=== PATIENT | female | born 1960 | race Caucasian/White ===

== ENCOUNTER 2020-01-14 11:28 | Emergency (ER) | payer OTHER ==
[2020-01-14] MEDS ORDERED: SODIUM CHLORIDE 0.9% 1,000 ML IV STA (11:44)
[2020-01-14] MEDS ORDERED: IBUPROFEN 600 MG TAB PO STA (11:44)
--- NOTE | 2020-01-14 12:18 | ED ---
Weakness HPI - General Chief complaint: Weakness Stated complaint: Weakness Time Seen by Provider: 01/14/20 11:35 Source: patient, EMS Mode of arrival: EMS Limitations: no limitations - History of Present Illness Initial comments: The patient is a 59-year-old female with past medical history of uterine cancer who presents to the emergency room with reported generalized weakness. Patient's has difficulty providing history but states over the past couple of days she has not felt well. She admits to poor fluid intake and generalized weakness. 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 She receives TPN 24 hours a day and medications were running when EMS arrived to evaluate the patient. The patient does arrive with a discharge medication list from [facility]. Patient was discharged on December 23. States that she lives alone and has a neighbor that checks on her and family that calls. She denies any nausea or vomiting. Has had poor fluid intake by mouth as she worries that increased fluid intake by mouth will cause increased fluid output from her ileostomy. She denies any abdominal pain. No increased production of stool from her ostomy at this time. Denies melenic stools or hematochezia. Her colocutanous fistula remains open and requires packing. Reports to continued yellow purulent drainage which has remained unchanged. Her home care nurse performs the packing exchanges. The remainder of the HPI is limited because the patient's current condition Records are requested from [facility] where the patient has received her previous care. She was hospitalized from November 19- December 23 for renal failure, hyperkalemia, enterocutaneous and colovaginal fistula. Patient had a vancomycin-resistant enterococcus intra-abdominal abscess for which she menjivar s IR drainage, completed 4 weeks of antibiotics was discharged home on Flagyl which she is currently still taking. Patients surgeon is Dr. Silva at [facility] and PCP is Dr. Melo. Patient originally diagnosed with uterine cancer in June of 2019 and had hysterectomy. Never received chemo/radiation. - Related Data Home Medications Medication Instructions Recorded Confirmed DULoxetine HCL [Cymbalta] 30 mg PO DAILY 01/14/20 01/14/20 Diphenox-Atrop 2.5-0.025 mg 1 tab PO QID 01/14/20 01/14/20 [Lomotil] Letrozole 2.5 mg PO DAILY 01/14/20 01/14/20 Levothyroxine Sodium 25 mcg PO DAILY 01/14/20 01/14/20 Loperamide [Imodium] 2 mg PO Q3H 01/14/20 01/14/20 Ondansetron HCl [Zofran] 8 mg PO TID 01/14/20 01/14/20 Allergies Allergy/AdvReac Type Severity Reaction Status Date / Time hydrocodone [From [place]] AdvReac Nausea & Verified 01/14/20 13:48 Vomiting Review of Systems ROS Statement: Those systems with pertinent positive or pertinent negative responses have been documented in the HPI. ROS Other: All systems not noted in ROS Statement are negative. Past Medical History Past Medical History: Cancer Additional Past Medical History / Comment(s): uterine History of Any Multi-Drug Resistant Organisms: None Reported Past Surgical History: Cholecystectomy Past Psychological History: No Psychological Hx Reported Smoking Status: Former smoker Past Alcohol Use History: None Reported Past Drug Use History: None Reported, Marijuana General Exam Limitations: altered mental status General appearance: lethargic, other (ashen mancera, diaphoretic) Eye exam: Present: normal appearance, PERRL, EOMI. Absent: scleral icterus, con junctival injection, periorbital swelling ENT exam: Present: mucous membranes dry Neck exam: Present: normal inspection. Absent: tenderness, meningismus, lymphadenopathy Respiratory exam: Present: normal lung sounds bilaterally, other (tachypnea, conversational dyspnea). Absent: wheezes, rales, rhonchi, stridor Cardiovascular Exam: Present: normal rhythm, tachycardia GI/Abdominal exam: Present: other (ileostomy left abdomen. enterocutanous fistula opening to right side of abdomen. Packing removed reveal purulent wade drainage. Adjacent skin is red, erythematous. Remainder of abdomen is non peritoneal. ) Extremities exam: Present: normal inspection, full ROM, normal capillary refill. Absent: tenderness, pedal edema, joint swelling, calf tenderness Neurological exam: Present: other (weak, opens eyes to verbal stimuli, follow commands.) Skin exam: Present: diaphoretic, pallor Course Vital Signs 01/14/20 01/14/20 01/14/20 11:34 12:03 12:13 Temperature 100.0 F H Pulse Rate 125 H 122 H 121 H Respiratory 18 18 16 Rate Blood Pressure 96/42 89/55 86/49 O2 Sat by Pulse 100 100 100 Oximetry 01/14/20 01/14/20 01/14/20 13:21 14:17 14:42 Temperature 101 F H Pulse Rate 112 H Respiratory 18 Rate Blood Pressure 121/90 81/37 99/50 O2 Sat by Pulse 97 Oximetry 01/14/20 01/14/20 01/14/20 14:46 15:10 15:30 Temperature Pulse Rate 103 H 91 Respiratory 18 18 Rate Blood Pressure 100/47 65/42 73/37 O2 Sat by Pulse 97 100 Oximetry 01/14/20 01/14/20 01/14/20 15:34 15:40 16:21 Temperature 98.2 F Pulse Rate 100 90 Respiratory 18 18 Rate Blood Pressure 68/27 81/38 92/55 O2 Sat by Pulse 98 95 Oximetry 01/14/20 01/14/20 01/14/20 16:22 16:34 16:57 Temperature Pulse Rate Respiratory Rate Blood Pressure 91/54 89/45 88/44 O2 Sat by Pulse 100 Oximetry 01/14/20 17:09 Temperature Pulse Rate 87 Respiratory 18 Rate Blood Pressure 93/50 O2 Sat by Pulse 100 Oximetry EKG Findings - EKG Comments: EKG Findings:: EKG demonstrates sinus tachycardia with a ventricular rate of 135. AZ interval 160. QRS 92. QTC of 548. No acute ST segment elevations or depressions. No signs of Gijba-[id number]-Zuxpx or Brugada Medical Decision Making - Medical Decision Making Upon arrival the patient is placed in trauma bay 2. A thorough history and physical exam is performed. I did speak to the patient's sister in regard to her care. Records were requested from [facility]. Laboratory studies were performed. White blood cell count is 14.9. Sodium 125. Potassium 2.7. Chloride 84. Lactic acid 5.4. AST 108, ALT 50. Troponin is 0.094. Lipase 648. Urinalysis shows trace leukocyte esterase, rare bacteria. Chest x-ray demonstrates no acute cardiopulmonary process. Abdomen and pelvis CT demonstrates suspected abscess or phlegmon along the mid line incision site in the subcutaneous tissues which may extend toward the ileostomy or diverting colostomy site in the left lower quadrant. Some inflammatory changes adjacent to the ascending colon or small bowel loops within the right lower quadrant. The patient was originally given a liter bolus of normal saline. I did replace the patient's potassium with 20 mEq through the IV as well as 40 meq by mouth prior to additional fluid resuscitation. She did receive a second liter of fluid followed by 100 cc/hr. Blood cultures were obtained the patient was given a dose of Zosyn. I discussed results with the patient. I did recommend transfer back to [facility] where her surgeon is available as well as the remainder of her specialists. The patient did agree with this plan and daughter Lina was in favor of this treatment plan. The patient is re-vitaled and continues to have a fever. Patient originally given Motrin for fever control. She was additionally provided with Tylenol. She remained in stable, yet critical condition and was transferred to [facility]. Accepting doctor was Dr. Hill. The patient was loaded into the ambulance and her blood pressure which was 90/50's dropped to 50/30s. The patient was deemed not stable for transport. I requested the patient be brought back to the trauma bay. She was started on peripheral levophed through her picc line. Patient does have improvement in her BP back to 90s systolic. I discussed the patients care with her daughter Lina after receiving permission from the patient. Patient then transferred in stable condition. - Lab Data Result diagrams: 01/14/20 11:58 01/14/20 11:58 Lab Results 01/14/20 01/14/20 01/14/20 Range/Units 11:58 11:58 11:58 WBC 14.9 H (3.8-10.6) k/uL RBC 4.30 (3.80-5.40) m/uL Hgb 13.2 (11.4-16.0) gm/dL Hct 38.6 (34.0-46.0) % MCV 89.7 (80.0-100.0) fL MCH 30.7 (25.0-35.0) pg MCHC 34.2 (31.0-37.0) g/dL RDW 14.6 (11.5-15.5) % Plt Count 247 (150-450) k/uL Neutrophils % (Manual) 74 % Band Neutrophils % 20 % Monocytes % (Manual) 1 % Eosinophils % (Manual) 1 % Metamyelocytes % 4 % Myelocytes % 2 % Neutrophils # (Manual) 14.00 H (1.3-7.7) k/uL Monocytes # (Manual) 0.15 (0-1.0) k/uL Eosinophils # (Manual) 0.15 (0-0.7) k/uL Metamyelocytes # (Man) 0.60 H (0) k/uL Myelocytes # (Manual) 0.30 H (0) k/uL Nucleated RBCs 0 (0-0) /100 WBC Manual Slide Review Performed Toxic Granulation Present Toxic Vacuolation Present PT 13.1 H (9.0-12.0) sec INR 1.3 H (<1.2) APTT 28.7 (22.0-30.0) sec Sodium 125 L (137-145) mmol/L Potassium 2.7 L* (3.5-5.1) mmol/L Chloride 84 L (98-107) mmol/L Carbon Dioxide 21 L (22-30) mmol/L Anion Gap 20 mmol/L BUN 32 H (7-17) mg/dL Creatinine 0.92 (0.52-1.04) mg/dL Est GFR (CKD-EPI)AfAm 78 (>60 ml/min/1.73 sqM) Est GFR (CKD-EPI)NonAf 68 (>60 ml/min/1.73 sqM) Glucose 96 (74-99) mg/dL Lactic Ac Sepsis Rflx Plasma Lactic Acid Sahil (0.7-2.0) mmol/L Calcium 9.0 (8.4-10.2) mg/dL Total Bilirubin 1.4 H (0.2-1.3) mg/dL AST 108 H (14-36) U/L ALT 50 H (4-34) U/L Alkaline Phosphatase 114 (38-126) U/L Creatine Kinase 51 (30-135) U/L Troponin I (0.000-0.034) ng/mL Total Protein 6.6 (6.3-8.2) g/dL Albumin 3.5 (3.5-5.0) g/dL Lipase 648 H (23-300) U/L Urine Color Urine Appearance (Clear) Urine pH (5.0-8.0) Ur Specific [place] (1.001-1.035) Urine Protein (Negative) Urine Glucose (UA) (Negative) Urine Ketones (Negative) Urine Blood (Negative) Urine Nitrite (Negative) Urine Bilirubin (Negative) Urine Urobilinogen (<2.0) mg/dL Ur Leukocyte Esterase (Negative) Urine RBC (0-5) /hpf Urine WBC (0-5) /hpf Ur Squamous Epith Cells (0-4) /hpf Urine Bacteria (None) /hpf Hyaline Casts (0-2) /lpf Urine Mucus (None) /hpf 01/14/20 01/14/20 01/14/20 Range/Units 11:58 11:58 12:05 WBC (3.8-10.6) k/uL RBC (3.80-5.40) m/uL Hgb (11.4-16.0) gm/dL Hct (34.0-46.0) % MCV (80.0-100.0) fL MCH (25.0-35.0) pg MCHC (31.0-37.0) g/dL RDW (11.5-15.5) % Plt Count (150-450) k/uL Neutrophils % (Manual) % Band Neutrophils % % Monocytes % (Manual) % Eosinophils % (Manual) % Metamyelocytes % % Myelocytes % % Neutrophils # (Manual) (1.3-7.7) k/uL Monocytes # (Manual) (0-1.0) k/uL Eosinophils # (Manual) (0-0.7) k/uL Metamyelocytes # (Man) (0) k/uL Myelocytes # (Manual) (0) k/uL Nucleated RBCs (0-0) /100 WBC Manual Slide Review Toxic Granulation Toxic Vacuolation PT (9.0-12.0) sec INR (<1.2) APTT (22.0-30.0) sec Sodium (137-145) mmol/L Potassium (3.5-5.1) mmol/L Chloride (98-107) mmol/L Carbon Dioxide (22-30) mmol/L Anion Gap mmol/L BUN (7-17) mg/dL Creatinine (0.52-1.04) mg/dL Est GFR (CKD-EPI)AfAm (>60 ml/min/1.73 sqM) Est GFR (CKD-EPI)NonAf (>60 ml/min/1.73 sqM) Glucose (74-99) mg/dL Lactic Ac Sepsis Rflx Plasma Lactic Acid Sahil 5.4 H* (0.7-2.0) mmol/L Calcium (8.4-10.2) mg/dL Total Bilirubin (0.2-1.3) mg/dL AST (14-36) U/L ALT (4-34) U/L Alkaline Phosphatase (38-126) U/L Creatine Kinase (30-135) U/L Troponin I 0.094 H* (0.000-0.034) ng/mL Total Protein (6.3-8.2) g/dL Albumin (3.5-5.0) g/dL Lipase (23-300) U/L Urine Color Yellow Urine Appearance Cloudy H (Clear) Urine pH 5.5 (5.0-8.0) Ur Specific [place] 1.018 (1.001-1.035) Urine Protein 1+ H (Negative) Urine Glucose (UA) Negative (Negative) Urine Ketones Negative (Negative) Urine Blood Negative (Negative) Urine Nitrite Negative (Negative) Urine Bilirubin Negative (Negative) Urine Urobilinogen <2.0 (<2.0) mg/dL Ur Leukocyte Esterase Trace H (Negative) Urine RBC 1 (0-5) /hpf Urine WBC 2 (0-5) /hpf Ur Squamous Epith Cells <1 (0-4) /hpf Urine Bacteria Rare H (None) /hpf Hyaline Casts 3 H (0-2) /lpf Urine Mucus Rare H (None) /hpf 01/14/20 Range/Units 12:48 WBC (3.8-10.6) k/uL RBC (3.80-5.40) m/uL Hgb (11.4-16.0) gm/dL Hct (34.0-46.0) % MCV (80.0-100.0) fL MCH (25.0-35.0) pg MCHC (31.0-37.0) g/dL RDW (11.5-15.5) % Plt Count (150-450) k/uL Neutrophils % (Manual) % Band Neutrophils % % Monocytes % (Manual) % Eosinophils % (Manual) % Metamyelocytes % % Myelocytes % % Neutrophils # (Manual) (1.3-7.7) k/uL Monocytes # (Manual) (0-1.0) k/uL Eosinophils # (Manual) (0-0.7) k/uL Metamyelocytes # (Man) (0) k/uL Myelocytes # (Manual) (0) k/uL Nucleated RBCs (0-0) /100 WBC Manual Slide Review Toxic Granulation Toxic Vacuolation PT (9.0-12.0) sec INR (<1.2) APTT (22.0-30.0) sec Sodium (137-145) mmol/L Potassium (3.5-5.1) mmol/L Chloride (98-107) mmol/L Carbon Dioxide (22-30) mmol/L Anion Gap mmol/L BUN (7-17) mg/dL Creatinine (0.52-1.04) mg/dL Est GFR (CKD-EPI)AfAm (>60 ml/min/1.73 sqM) Est GFR (CKD-EPI)NonAf (>60 ml/min/1.73 sqM) Glucose (74-99) mg/dL Lactic Ac Sepsis Rflx Y Plasma Lactic Acid Sahil (0.7-2.0) mmol/L Calcium (8.4-10.2) mg/dL Total Bilirubin (0.2-1.3) mg/dL AST (14-36) U/L ALT (4-34) U/L Alkaline Phosphatase (38-126) U/L Creatine Kinase (30-135) U/L Troponin I (0.000-0.034) ng/mL Total Protein (6.3-8.2) g/dL Albumin (3.5-5.0) g/dL Lipase (23-300) U/L Urine Color Urine Appearance (Clear) Urine pH (5.0-8.0) Ur Specific [place] (1.001-1.035) Urine Protein (Negative) Urine Glucose (UA) (Negative) Urine Ketones (Negative) Urine Blood (Negative) Urine Nitrite (Negative) Urine Bilirubin (Negative) Urine Urobilinogen (<2.0) mg/dL Ur Leukocyte Esterase (Negative) Urine RBC (0-5) /hpf Urine WBC (0-5) /hpf Ur Squamous Epith Cells (0-4) /hpf Urine Bacteria (None) /hpf Hyaline Casts (0-2) /lpf Urine Mucus (None) /hpf Critical Care Time Critical Care Time: Yes Critical Care Time: 40 minutes Disposition Clinical Impression: Hyponatremia, Hypokalemia, Abdominal abscess, Dehydration, Tachycardia, Severe sepsis Disposition: OTHER INSTITUTION NOT DEFINED Condition: Serious Is patient prescribed a controlled substance at d/c from ED?: No Referrals: Nonstaff,Physician [REFERRING] - 1-2 days Time of Disposition: 13:47 - Out of Hospital Transfer - Req. Specs Out of Hospital Transfer - Requested Specifics: Other Emergency Center ([facility])
[2020-01-14 12:29] LABS: HCT 38.6 % (34.0-46.0); HGB 13.2 gm/dL (11.4-16.0); MCH 30.7 pg (25.0-35.0); MCHC 34.2 g/dL (31.0-37.0); MCV 89.7 fL (80.0-100.0); Mean Platelet Volume 6.9; Platelet Count 247 k/uL (150-450); RDW 14.6 % (11.5-15.5); WBC 14.9 k/uL (3.8-10.6)
[2020-01-14 12:33] LABS: Appearance,Urine Cloudy (Clear); Bacteria,Urine Rare /hpf; Bilirubin,Urine Negative (Negative); Blood,Urine Negative (Negative); Color,Urine Yellow; Glucose,Urine (UA) Negative (Negative); Hyaline Casts,Urine 3 /lpf (0-2); Ketones,Urine Negative (Negative); Leukocyte Esterase,Urine Trace (Negative); Mucus,Urine Rare /hpf; Nitrite,Urine Negative (Negative); PH, Urine 5.5 (5.0-8.0); Protein,Urine 1+ (Negative); RBC,Urine 1 /hpf (0-5); Specific Gravity,Urine 1.018 (1.001-1.035); Squamous Epithelial Cell,Urine <1 /hpf (0-4); Urobilinogen,Urine <2.0 mg/dL (<2.0); WBC,Urine 2 /hpf (0-5)
[2020-01-14 12:39] LABS: Albumin 3.5 g/dL (3.5-5.0); INR 1.3 (<1.2); Partial Thromboplastin Time 28.7 sec (22.0-30.0); Prothrombin Time 13.1 sec (9.0-12.0); Total Bilirubin 1.4 mg/dL (0.2-1.3); Total Protein 6.6 g/dL (6.3-8.2)
[2020-01-14 12:48] LABS: Band Neutrophils % 20 %; Eosinophils # (M) 0.15 k/uL (0-0.7); Metamyelocytes % 4 %; Monocytes # (M) 0.15 k/uL (0-1.0); Myelocytes % 2 %; Neutrophils % (M) 74 %; Nucleated Red Blood Cells 0 /100 WBC (0-0); Total Cells Counted 200; Toxic Vacuolation Present
[2020-01-14] MEDS ORDERED: POTASSIUM CHLORIDE ER 20 MEQ TAB.ER PO STA (12:48)
[2020-01-14 12:49] LABS: Potassium 2.7 mmol/L (3.5-5.1); Toxic Granulation Present
[2020-01-14] MEDS ORDERED: PIPERACILLIN-TAZOBACTAM 3.375 GM in SODIUM CHLORIDE 0.9% 100 ML IVPB STA (12:53)
--- NOTE | 2020-01-14 13:01 | XR ---
EXAMINATION TYPE: XR chest 2V DATE OF EXAM: 01/14/2020 COMPARISON: None INDICATION: Weakness TECHNIQUE: Frontal and lateral views of the chest are obtained. FINDINGS: The heart size is normal. The pulmonary vasculature is normal. The lungs are clear. PICC line enters on the right and has the tip in the right atrium. IMPRESSION: 1. No acute pulmonary process.
[2020-01-14 13:22] VITALS: RESP 18
[2020-01-14] MEDS ORDERED: ACETAMINOPHEN TAB 325 MG TAB PO STA (13:22)
--- NOTE | 2020-01-14 13:37 | CT ---
EXAMINATION TYPE: CT abdomen pelvis w con DATE OF EXAM: 01/14/2020 COMPARISON: None INDICATION: weakness, fever DLP: 1312.3 mGycm, Automated exposure control for dose reduction was used. CONTRAST: 100 mL of Isovue 300. Study performed without Oral Contrast TECHNIQUE: Axial images were obtained from above the diaphragm to the pubic rami in the axial plane a t 5 mm thick sections. Reconstructed images are reviewed on the computer in the coronal plane. FINDINGS: Limited CT sections are obtained the lung bases. The lung bases are clear. CT ABDOMEN: Liver: Normal Spleen: Normal Pancreas: Normal Adrenal glands: The adrenal glands are normal. Gallbladder: Surgically absent Kidneys: No masses are evident. No hydronephrosis is present. No cysts are present. Delayed images were obtained through the kidneys, which remain unremarkable. Aorta: Normal Inferior vena cava: Normal. CT PELVIS: There is an anterior abdominal wall diastases of the surgical site. Small amount of air an d debris appears to be present. Example image series 201 image 62. The collection extends along the anterior subcutaneous region towards the ostomy site. The anterior abdominal wall musculature is slig htly thickened at the level of the suspected infection. Differentiation of the rectus abdominis muscl es from this phlegmon is difficult. This area is approximately 1.2 cm in depth and up to 7 cm in widt h. Example images Series 201 image 52 and 56. There is an ileostomy in the left lower quadrant. Postsurgical changes are evident within loops of duy wel. Tracing loops of bowel is extremely difficult with lack oral contrast. There appears to be matted loo ps of bowel containing fluid limiting bowel wall evaluation. There are loops of bowel above the urina ry bladder some of which contain air and fecal debris. Some postsurgical suture appears to be present in the rectosigmoid region. Additional bowel loop postsurgical changes in the epigastric region ante riorly. Some inflammatory change appears to be adjacent to some loops of bowel in the right paracolic gutter. Discrete intra-abdominal abscess is not clearly identified. However, the matted loops of bowel and la ck oral contrast may make differentiation difficult. Correlate with the patient's clinical symptoms. Appendix: Absent Urinary bladder: Normal. Genitourinary structures: Surgically absent Osseous structures: No suspicious lytic or sclerotic lesions. IMPRESSIONS: 1. Suspected abscess or phlegmon along a midline incision site and the subcutaneous tissues which ma y extend towards the ileostomy or diverting colostomy site in the left lower quadrant. 2. Intra-abdominal evaluation for abscess is very limited. Noncontrast bowel loops and postsurgical c hanges make differentiation from abscess very difficult. 3. There may be some inflammatory change adjacent to the ascending colon region or small bowel loops within the right lower quadrant pelvis. This is better visualized in the coronal plane.
[2020-01-14] MEDS: POTASSIUM CHLORIDE 10 MEQ in WATER FOR INJECTION 1 100ML.BAG IVPB SCH ×2 (13:52→14:47)
[2020-01-14] MEDS ORDERED: SODIUM CHLORIDE 0.9% 1,000 ML IV ONE (14:21)
[2020-01-14] MEDS ORDERED: NOREPINEPHRINE 4 MG in SODIUM CHLORIDE 0.9% 250 ML IV ONE (15:00)
[2020-01-14 15:35] VITALS: TEMP 98.2
[2020-01-14 17:10] VITALS: BP 93/50; PULSE 87
== END 2020-01-14 17:33 | disposition other institution (70) ==
LOC: EC 11:28
DX: E87.1 Hypo-osmolality and hyponatremia (principal); E87.6 Hypokalemia; L02.211 Cutaneous abscess of abdominal wall; E86.0 Dehydration; R65.20 Severe sepsis without septic shock; R00.0 Tachycardia, unspecified; Z85.42 Personal history of malignant neoplasm of other parts of uterus; Z90.710 Acquired absence of both cervix and uterus; Z87.891 Personal history of nicotine dependence; Z93.2 Ileostomy status; Z79.890 Hormone replacement therapy; Z79.899 Other long term (current) drug therapy; Z88.5 Allergy status to narcotic agent
CPT/HCPCS: 36415; 93005; 80053; 82550; 83605; 83690; 84484; 85025; 85610; 85730; 81001; 87040; 71046; 74177; 99291; 51701; 96365; 96367 ×2; 96366; 96376; 96361 ×2; J2543; J3480; Q9967

== ENCOUNTER 2020-04-03 01:50 | Emergency (ER) | payer MEDICAID, OTHER ==
[2020-04-03] MEDS ORDERED: ACETAMINOPHEN TAB 500 MG TAB PO STA (01:59)
[2020-04-03] MEDS ORDERED: IBUPROFEN 600 MG TAB PO STA (01:59)
--- NOTE | 2020-04-03 02:07 | ED ---
Recheck HPI - General Stated Complaint: Infection Time Seen by Provider: 04/03/20 01:59 Source: patient, EMS, RN notes reviewed, old records reviewed Mode of arrival: EMS Limitations: no limitations - History of Present Illness Initial Comments: This is a 59-year-old female DF for evaluation patient to the ER. Today she presents DF for evaluation regards to discharge from her vagina and rectum. Patient states she is getting brownish fluid from both areas. 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 which is currently pending persistent, patient has no pain but she may have had a fever feels feverish, no significant swelling but is very anxious, patient was scheduled for reserve reversal surgery consultation on Sunday Complaint: wound re-check -: days(s) (Symptoms on and off for the last few days) Symptoms Since Prior Visit: worsening discharge Associated Symptoms: fever - Related Data Home Medications Medication Instructions Recorded Confirmed DULoxetine HCL [Cymbalta] 30 mg PO DAILY 01/14/20 01/14/20 Diphenox-Atrop 2.5-0.025 mg 1 tab PO QID 01/14/20 01/14/20 [Lomotil] Letrozole 2.5 mg PO DAILY 01/14/20 01/14/20 Levothyroxine Sodium 25 mcg PO DAILY 01/14/20 01/14/20 Loperamide [Imodium] 2 mg PO Q3H 01/14/20 01/14/20 Ondansetron HCl [Zofran] 8 mg PO TID 01/14/20 01/14/20 Allergies Allergy/AdvReac Type Severity Reaction Status Date / Time hydrocodone [From [place]] AdvReac Nausea & Verified 01/14/20 13:48 Vomiting Review of Systems ROS Statement: Those systems with pertinent positive or pertinent negative responses have been documented in the HPI. ROS Other: All systems not noted in ROS Statement are negative. Past Medical History Past Medical History: Cancer Additional Past Medical History / Comment(s): uterine History of Any Multi-Drug Resistant Organisms: None Reported Past Surgical History: Cholecystectomy Past Psychological History: No Psychological Hx Reported Past Alcohol Use History: None Reported Past Drug Use History: None Reported, Marijuana General Exam Limitations: no limitations General appearance: alert, in no apparent distress Head exam: Present: atraumatic, normocephalic, normal inspection Eye exam: Present: normal appearance, PERRL, EOMI. Absent: scleral icterus, conjunctival injection, periorbital swelling ENT exam: Present: normal exam, mucous membranes moist Neck exam: Present: normal inspection. Absent: tenderness, meningismus, lymphadenopathy Respiratory exam: Present: normal lung sounds bilaterally. Absent: respiratory distress, wheezes, rales, rhonchi, stridor Cardiovascular Exam: Present: normal rhythm, tachycardia, normal heart sounds. Absent: systolic murmur, diastolic murmur, rubs, gallop, clicks GI/Abdominal exam: Present: soft, normal bowel sounds. Absent: distended, tenderness, guarding, rebound, rigid Extremities exam: Present: normal inspection, full ROM, normal capillary refill. Absent: tenderness, pedal edema, joint swelling, calf tenderness Back exam: Present: normal inspection Neurological exam: Present: alert, oriented X3, CN II-XII intact Psychiatric exam: Present: normal affect, normal mood Skin exam: Present: warm, dry, intact, normal color. Absent: rash Course Vital Signs 04/03/20 04/03/20 01:54 03:38 Temperature 100.0 F H 98.7 F Pulse Rate 112 H 60 Respiratory 16 17 Rate Blood Pressure 104/73 110/65 O2 Sat by Pulse 97 96 Oximetry - Reevaluation(s) Reevaluation #1: 04/03/20 02:07 Medical records reviewed Reevaluation #2: 04/03/20 03:57 spoke w patient regarding symptoms and findings, questions answered, agrees to nicho Medical Decision Making - Medical Decision Making 59 female DF for evaluation regards to what she believes maybe a new fistula patient does have current colostomy pending reversal, patient does have urinary tract infection and fever. Patient placed on IV antibiotics and transferred [facility] for evaluation by prior surgeon - Lab Data Result diagrams: 04/03/20 02:04 04/03/20 02:04 Lab Results 04/03/20 04/03/20 04/03/20 Range/Units 02:04 02:04 02:04 WBC 9.2 (3.8-10.6) k/uL RBC 3.78 L (3.80-5.40) m/uL Hgb 11.3 L (11.4-16.0) gm/dL Hct 34.7 (34.0-46.0) % MCV 91.8 (80.0-100.0) fL MCH 30.0 (25.0-35.0) pg MCHC 32.6 (31.0-37.0) g/dL RDW 15.1 (11.5-15.5) % Plt Count 230 (150-450) k/uL Neutrophils % 82 % Lymphocytes % 6 % Monocytes % 4 % Eosinophils % 5 % Basophils % 0 % Neutrophils # 7.6 (1.3-7.7) k/uL Lymphocytes # 0.6 L (1.0-4.8) k/uL Monocytes # 0.4 (0-1.0) k/uL Eosinophils # 0.5 (0-0.7) k/uL Basophils # 0.0 (0-0.2) k/uL PT 10.2 (9.0-12.0) sec INR 1.0 (<1.2) APTT 24.9 (22.0-30.0) sec Sodium (137-145) mmol/L Potassium (3.5-5.1) mmol/L Chloride (98-107) mmol/L Carbon Dioxide (22-30) mmol/L Anion Gap mmol/L BUN (7-17) mg/dL Creatinine (0.52-1.04) mg/dL Est GFR (CKD-EPI)AfAm (>60 ml/min/1.73 sqM) Est GFR (CKD-EPI)NonAf (>60 ml/min/1.73 sqM) Glucose (74-99) mg/dL Plasma Lactic Acid Sahil (0.7-2.0) mmol/L Calcium (8.4-10.2) mg/dL Magnesium (1.6-2.3) mg/dL Total Bilirubin (0.2-1.3) mg/dL AST (14-36) U/L ALT (4-34) U/L Alkaline Phosphatase (38-126) U/L Lactate Dehydrogenase (313-618) U/L C-Reactive Protein (<10.0) mg/L Total Protein (6.3-8.2) g/dL Albumin (3.5-5.0) g/dL Urine Color Yellow Urine Appearance Turbid H (Clear) Urine pH 5.5 (5.0-8.0) Ur Specific [place] 1.015 (1.001-1.035) Urine Protein 1+ H (Negative) Urine Glucose (UA) Negative (Negative) Urine Ketones Negative (Negative) Urine Blood Moderate H (Negative) Urine Nitrite Negative (Negative) Urine Bilirubin Negative (Negative) Urine Urobilinogen <2.0 (<2.0) mg/dL Ur Leukocyte Esterase Large H (Negative) Urine RBC 95 H (0-5) /hpf Urine WBC >182 H (0-5) /hpf Urine WBC Clumps Many H (None) /hpf Ur Squamous Epith Cells <1 (0-4) /hpf Urine Bacteria Moderate H (None) /hpf Hyaline Casts 4 H (0-2) /lpf Urine Mucus Rare H (None) /hpf 04/03/20 04/03/20 Range/Units 02:04 02:04 WBC (3.8-10.6) k/uL RBC (3.80-5.40) m/uL Hgb (11.4-16.0) gm/dL Hct (34.0-46.0) % MCV (80.0-100.0) fL MCH (25.0-35.0) pg MCHC (31.0-37.0) g/dL RDW (11.5-15.5) % Plt Count (150-450) k/uL Neutrophils % % Lymphocytes % % Monocytes % % Eosinophils % % Basophils % % Neutrophils # (1.3-7.7) k/uL Lymphocytes # (1.0-4.8) k/uL Monocytes # (0-1.0) k/uL Eosinophils # (0-0.7) k/uL Basophils # (0-0.2) k/uL PT (9.0-12.0) sec INR (<1.2) APTT (22.0-30.0) sec Sodium 132 L (137-145) mmol/L Potassium 5.0 (3.5-5.1) mmol/L Chloride 111 H (98-107) mmol/L Carbon Dioxide 15 L (22-30) mmol/L Anion Gap 6 mmol/L BUN 21 H (7-17) mg/dL Creatinine 0.74 (0.52-1.04) mg/dL Est GFR (CKD-EPI)AfAm >90 (>60 ml/min/1.73 sqM) Est GFR (CKD-EPI)NonAf 88 (>60 ml/min/1.73 sqM) Glucose 106 H (74-99) mg/dL Plasma Lactic Acid Sahil 1.3 (0.7-2.0) mmol/L Calcium 9.4 (8.4-10.2) mg/dL Magnesium 1.8 (1.6-2.3) mg/dL Total Bilirubin 1.0 (0.2-1.3) mg/dL AST 53 H (14-36) U/L ALT 72 H (4-34) U/L Alkaline Phosphatase 203 H (38-126) U/L Lactate Dehydrogenase 616 (313-618) U/L C-Reactive Protein 78.4 H (<10.0) mg/L Total Protein 6.0 L (6.3-8.2) g/dL Albumin 2.6 L (3.5-5.0) g/dL Urine Color Urine Appearance (Clear) Urine pH (5.0-8.0) Ur Specific [place] (1.001-1.035) Urine Protein (Negative) Urine Glucose (UA) (Negative) Urine Ketones (Negative) Urine Blood (Negative) Urine Nitrite (Negative) Urine Bilirubin (Negative) Urine Urobilinogen (<2.0) mg/dL Ur Leukocyte Esterase (Negative) Urine RBC (0-5) /hpf Urine WBC (0-5) /hpf Urine WBC Clumps (None) /hpf Ur Squamous Epith Cells (0-4) /hpf Urine Bacteria (None) /hpf Hyaline Casts (0-2) /lpf Urine Mucus (None) /hpf - EKG Data -: EKG Interpreted by Me (EKG is sinus tachycardia 1:15 IL 150 QRS 84 QTc 423) - Radiology Data Radiology results: report reviewed (CT head and pelvis does show multiple surgical anatomical changes as well as fistula between the cecum in the rectosigmoid area), image reviewed Disposition Clinical Impression: UTI (urinary tract infection), Fever, Postoperative pain Disposition: OTHER INSTITUTION NOT DEFINED Condition: Fair Is patient prescribed a controlled substance at d/c from ED?: No Referrals: None,Stated [Primary Care Provider] - 1-2 days - Out of Hospital Transfer - Req. Specs Out of Hospital Transfer - Requested Specifics: Other Emergency Center ([facility])
[2020-04-03 02:22] LABS: Partial Thromboplastin Time 24.9 sec (22.0-30.0); Prothrombin Time 10.2 sec (9.0-12.0)
[2020-04-03 02:27] LABS: ALT 72 U/L (4-34); AST 53 U/L (14-36); African American GFR (CKD) >90 (>60 ml/min/1.73 sqM); Albumin 2.6 g/dL (3.5-5.0); Alkaline Phosphatase 203 U/L (38-126); Anion Gap 6 mmol/L; Blood Urea Nitrogen 21 mg/dL (7-17); C Reactive Protein 78.4 mg/L (<10.0); Calcium 9.4 mg/dL (8.4-10.2); Carbon Dioxide 15 mmol/L (22-30); Chloride 111 mmol/L (98-107); Glucose 106 mg/dL (74-99); LDH 616 U/L (313-618); Magnesium 1.8 mg/dL (1.6-2.3); Non-African American GFR(CKD) 88 (>60 ml/min/1.73 sqM); Sodium 132 mmol/L (137-145)
[2020-04-03 02:43] LABS: Basophils % (A) 0 %; Eosinophils # (A) 0.5 k/uL (0-0.7); Eosinophils % (A) 5 %; HCT 34.7 % (34.0-46.0); HGB 11.3 gm/dL (11.4-16.0); Lymphocytes # (A) 0.6 k/uL (1.0-4.8); Lymphocytes % (A) 6 %; MCHC 32.6 g/dL (31.0-37.0); MCV 91.8 fL (80.0-100.0); Mean Platelet Volume 7.7; Monocytes # (A) 0.4 k/uL (0-1.0); Monocytes % (A) 4 %; Neutrophils # (A) 7.6 k/uL (1.3-7.7); Neutrophils % (A) 82 %; Platelet Count 230 k/uL (150-450); RBC 3.78 m/uL (3.80-5.40); RDW 15.1 % (11.5-15.5); WBC 9.2 k/uL (3.8-10.6)
[2020-04-03 02:58] LABS: Appearance,Urine Turbid (Clear); Bacteria,Urine Moderate /hpf; Bilirubin,Urine Negative (Negative); Blood,Urine Moderate (Negative); Color,Urine Yellow; Glucose,Urine (UA) Negative (Negative); Hyaline Casts,Urine 4 /lpf (0-2); Ketones,Urine Negative (Negative); Leukocyte Esterase,Urine Large (Negative); Mucus,Urine Rare /hpf; Nitrite,Urine Negative (Negative); PH, Urine 5.5 (5.0-8.0); Protein,Urine 1+ (Negative); RBC,Urine 95 /hpf (0-5); Specific Gravity,Urine 1.015 (1.001-1.035); Squamous Epithelial Cell,Urine <1 /hpf (0-4); Urobilinogen,Urine <2.0 mg/dL (<2.0); WBC,Urine >182 /hpf (0-5)
--- NOTE | 2020-04-03 03:26 | XR ---
EXAMINATION TYPE: XR chest 1V portable DATE OF EXAM: 04/03/2020 COMPARISON: 01/14/2020 HISTORY: Chest pain TECHNIQUE: FINDINGS: Heart and mediastinum are normal. Lungs are clear of infiltrate. There is no heart failure. Costophrenic angles are clear. There is right subclavian catheter with tip in the superior vena cava . IMPRESSION: No active cardiopulmonary disease. No adverse change.
[2020-04-03 03:38] VITALS: BP 110/65; PULSE 60; RESP 17; TEMP 98.7
--- NOTE | 2020-04-03 03:44 | CT ---
EXAMINATION TYPE: CT abdomen pelvis w con DATE OF EXAM: 04/03/2020 COMPARISON: 01/14/2020 HISTORY: Abd Pain, r/o fistua CT DLP: 1657 mGycm Automated exposure control for dose reduction was used. CONTRAST: Performed with IV Contrast, patient injected with 100 mL of Isovue 300. There is rectal contrast. The lung bases show mild subsegmental atelectasis. There is no pleural effusion. Heart size is normal . There is no pericardial effusion. There are clips from cholecystectomy. Liver and spleen appear intact. There is no pancreatic mass. St omach is intact. The bile ducts are not dilated. There is no adrenal mass. Kidneys show satisfactory contrast opacification. There is no hydronephrosis. Bladder distends smoothly. There are surgical cli ps apparently in the rectosigmoid junction. There is rectal contrast noted with severe stricture at t he rectosigmoid junction. Small amount of contrast is seen in the more proximal sigmoid colon. Distal sigmoid colon is dilated with fluid. There is also contrast opacification of the vagina. There is hy sterectomy. There is probably a fistula of the vaginal vault with the rectosigmoid junction in the ar ea of the surgical clips and stricture. There is some fluid apparently in the right paracolic gutter. There is apparent anastomosis in the mid transverse colon. Anatomy of the large bowel is difficult t o evaluate with the surgical changes. There appears to be fistula between May ascending colon and the rectosigmoid junction. Some of the rectal contrast appears to flow into the ascending colon while th ere is no contrast in the descending colon. The small bowel is not dilated. I see no sign of free air . There is a stoma in left mid abdomen. There is peristomal hernia. This appears to be an ileostomy. It Is unclear how there is fluid in the large bowel with the presence of ileostomy. There is mild anterior subluxation of L4 in relation L5 of 7 mm. There is no lumbar compression fract ure. IMPRESSION: Significantly altered anatomy. There is a stricture at the rectosigmoid junction with multiple surgic al clips. There is a fistula between the vaginal vault and the surgery site. There appears to also be fistula between the ascending colon or cecum and the rectosigmoid junction. No free air. Minimal atelectasis at the left lung base. There is closure of the midline dehiscence to a large extent compared to old exam.
== END 2020-04-03 04:30 | disposition other institution (70) ==
LOC: EC 01:50
DX: N39.0 Urinary tract infection, site not specified (principal); G89.18 Other acute postprocedural pain; Z20.828 Contact with and (suspected) exposure to other viral communicable diseases; Z85.9 Personal history of malignant neoplasm, unspecified; Z90.49 Acquired absence of other specified parts of digestive tract; Z87.42 Personal history of other diseases of the female genital tract; Z93.3 Colostomy status; Z79.890 Hormone replacement therapy; Z79.899 Other long term (current) drug therapy; Z88.5 Allergy status to narcotic agent
CPT/HCPCS: 99285; 96365; 36415; 93005; 80053; 82728; 83605; 83615; 83735; 85025; 85610; 85730; 86140; 81001; 87040; 87086; 87077; 87186; 84145; 71045; 74177; U0003; J0696; Q9967 ×2